=== PATIENT | male | born 1970 | race Caucasian/White ===

== ENCOUNTER → 2024-06-27 | Outpatient (REF) | payer SELFPAY ==
[2024-06-27 19:24] LABS: HEMOGLOBIN A1c 5.5 % (4.0-6.0)
[2024-06-27 19:40] LABS: ALBUMIN 3.6 G/DL (3.2-5.2); ALKALINE PHOSPHATASE 82 U/L (40-129); ALT/SGPT 43 U/L (7.0-40); AST/SGOT 24 U/L (<34); BILIRUBIN,TOTAL 0.8 MG/DL (0.3-1.2); BLOOD UREA NITROGEN 15 MG/DL (9-23); CALCIUM LEVEL 9.6 MG/DL (8.5-10.1); CARBON DIOXIDE LEVEL 33 MMOL/L (20-31); CHLORIDE LEVEL 99 MMOL/L (98-107); CHOLESTEROL LEVEL 290 MG/DL (<200); CHOLESTEROL RISK RATIO 7.65 (<5); CREATININE FOR GFR 0.83 MG/DL (0.70-1.30); GLOMERULAR FILTRATION RATE > 60.0 (>56); GLUCOSE, FASTING 103 MG/DL (60-100); HDL CHOLESTEROL 37.9 MG/DL (>40); LDL CHOLESTEROL 183.9 MG/DL (<100); NON-HDL-C 252.1 MG/DL; POTASSIUM SERUM 4.1 MMOL/L (3.5-5.1); SODIUM LEVEL 139 MMOL/L (136-145); TOTAL PROTEIN 7.2 G/DL (5.7-8.2); TRIGLYCERIDES LEVEL 341 MG/DL (<150)
[2024-06-27 19:41] LABS: FREE T4 1.15 NG/DL (0.89-1.76); THYROID STIMULATING HORMONE 2.398 uIU/ML (0.55-4.78)
[2024-06-29 14:21] LABS: ANA SCREEN, IFA NEGATIVE (NEGATIVE)
== END ==
LOC: M SFHCCLAY 10:07
PROVIDERS: ATTEND Nurse Practitioner Family
DX: I10 Essential (primary) hypertension (principal); K21.9 Gastro-esophageal reflux disease without esophagitis; F51.01 Primary insomnia; F17.200 Nicotine dependence, unspecified, uncomplicated; Z68.37 Body mass index [BMI] 37.0-37.9, adult; E66.812 Obesity, class 2; M25.50 Pain in unspecified joint; R53.82 Chronic fatigue, unspecified; Z12.5 Encounter for screening for malignant neoplasm of prostate
CPT/HCPCS: 80053; 80061; 83036; 84439; 84443; 86038; 86618; G0103